=== PATIENT | female | born 1960 | race Caucasian/White ===

== ENCOUNTER 2020-08-02 19:19 | Emergency (ER) | payer MEDICAID, OTHER ==
[~2020-08-02] VITALS: Ht 167.6 cm; Wt 99.8 kg
--- NOTE | 2020-08-02 19:31 | NUR ---
PT AAOX4. AMBULATORY WITH STEDY GAIT. BIB HER SON FOR C/O HEADAHCE AND BLE PAIN SINCE LAST NIGHT. UPON ASSESSMENT NO SOB NOTED, -COUGH, NOR FEVER. PT RESTING COMFORTABLY IN BED 8. NO ACUTE DISTRESS NOTED. AWAITING MD FOR EVAL AND ORDERS.
--- NOTE | 2020-08-02 19:41 | NUR ---
PA AT BEDSIDE SPEAKING TO PT
[2020-08-02] MEDS ORDERED: KETOROLAC TROMETHAMINE 15 MG/ML VIAL ONE (20:05)
[2020-08-02] MEDS ORDERED: PROCHLORPERAZINE EDISYLATE 10 MG/2 ML VIAL ONE (20:05)
[2020-08-02] MEDS ORDERED: DEXAMETHASONE SOD PHOSPHATE 10 MG/ML VIAL ONE (20:05)
[2020-08-02] MEDS ORDERED: MORPHINE SULFATE INJ 4 MG/ML DISP.SYRIN ONE (20:06)
[2020-08-02] MEDS: IV NS 0.9% 1,000 ML BAG IV ONE (20:10)
[2020-08-02] MEDS: MORPHINE SULFATE INJ 10 MG/ML DISP.SYRIN IV ONE (20:15)
--- NOTE | 2020-08-02 20:15 | NUR ---
SENIOR ACCOUNTING SPECIALIST AT BEDSIDE FOR LABS
[2020-08-02] MEDS: KETOROLAC TROMETHAMINE INJ 30 MG/ML VIAL IV ONE (20:17)
[2020-08-02] MEDS: DEXAMETHASONE SOD PHOSPHATE 10 MG/ML VIAL IV ONE (20:18)
[2020-08-02] MEDS: PROCHLORPERAZINE EDISYLATE 10 MG/2 ML VIAL IVP ONE (20:19)
[2020-08-02 20:20] LABS: BASOPHILS % (AUTO) 0.5 % (0.0-2.0); EOSINOPHILS % (AUTO) 0.3 % (0.0-6.0); HEMATOCRIT 41 % (33-45); HEMOGLOBIN 13.7 g/dL (11.5-14.8); LYMPHOCYTES # (AUTO) 1.5 /CMM (0.8-4.8); LYMPHOCYTES % (AUTO) 33.2 % (20.0-44.0); MEAN CORPUSCULAR HGB CONC 33 g/dl (31.0-36.0); MEAN CORPUSCULAR VOLUME 85 fL (82-100); MONOCYTES # (AUTO) 0.7 /CMM (0.1-1.30); MONOCYTES % (AUTO) 15.5 % (2.0-12.0); NEUTROPHILS # (AUTO) 2.3 /CMM (1.8-8.9); NEUTROPHILS % (AUTO) 50.5 % (43.0-81.0); PLATELET COUNT (AUTO) 245 /CMM (150-450); RED BLOOD CELL COUNT(AUTO) 4.86 MIL/uL (4.0-5.2); WHITE BLOOD COUNT (AUTO) 4.5 K/uL (4.3-11.0)
[2020-08-02 20:29] LABS: CALCIUM, SERUM 9.1 mg/dL (8.5-10.1); CREATININE 0.8 mg/dL (0.6-1.3)
--- NOTE | 2020-08-02 20:29 | NUR ---
PT MEDICATED, STATED SHE FEELS BETTER.
--- NOTE | 2020-08-02 21:17 | NUR ---
PT DENIES PAIN, AMBULATED TO THE RESTROOM
--- NOTE | 2020-08-02 21:51 | NUR ---
IV removed. Catheter intact and site benign. Pressure and 4x4 applied to site. No bleeding noted. Patient discharged to home in stable condition. Written and verbal after care instructions given. Patient verbalizes understanding of instruction and RX.
[2020-08-02 21:57] VITALS: BP 134/71
== END 2020-08-02 22:08 | disposition home or self-care (01) ==
LOC: ER 19:25
DX: R51 Headache (principal); G57.83 Other specified mononeuropathies of bilateral lower limbs; M54.31 Sciatica, right side; E11.9 Type 2 diabetes mellitus without complications; Z90.49 Acquired absence of other specified parts of digestive tract
CPT/HCPCS: 36415; 80048; 85025; 96361; 96374; 96375; 99284; J0780; J1100; J1885; J2270; J7030

== ENCOUNTER 2020-08-07 16:38 | Emergency (ER) | payer OTHER ==
[~2020-08-07] VITALS: Ht 167.6 cm; Wt 96.2 kg
[2020-08-07] MEDS ORDERED: MORPHINE SULFATE INJ 2 MG/ML DISP.SYRIN IV ONE (17:00)
[2020-08-07] MEDS ORDERED: IV NS 0.9% 1,000 ML BAG IV ONE (17:00)
[2020-08-07] MEDS ORDERED: ONDANSETRON HCL/PF 4 MG/2 ML VIAL IVP ONE (17:00)
[2020-08-07] MEDS ORDERED: MORPHINE SULFATE INJ 4 MG/ML DISP.SYRIN ONE (17:06)
[2020-08-07] MEDS ORDERED: ONDANSETRON HCL/PF 4 MG/2 ML VIAL ONE (17:06)
[2020-08-07 17:20] LABS: BASOPHILS % (AUTO) 0.4 % (0.0-2.0); EOSINOPHILS % (AUTO) 0.2 % (0.0-6.0); HEMATOCRIT 44 % (33-45); HEMOGLOBIN 14.4 g/dL (11.5-14.8); LYMPHOCYTES # (AUTO) 2.1 /CMM (0.8-4.8); LYMPHOCYTES % (AUTO) 48.5 % (20.0-44.0); MEAN CORPUSCULAR HGB CONC 33 g/dl (31.0-36.0); MEAN CORPUSCULAR VOLUME 85 fL (82-100); MONOCYTES # (AUTO) 0.4 /CMM (0.1-1.30); MONOCYTES % (AUTO) 8.1 % (2.0-12.0); NEUTROPHILS # (AUTO) 1.9 /CMM (1.8-8.9); NEUTROPHILS % (AUTO) 42.8 % (43.0-81.0); PLATELET COUNT (AUTO) 229 /CMM (150-450); WHITE BLOOD COUNT (AUTO) 4.3 K/uL (4.3-11.0)
--- NOTE | 2020-08-07 17:24 | NUR ---
body ache worst for the past 2 days. PT AAOX4, VSS. RR EVEN & UNLABORED. DENIES CP, SOB, DIZZINESS, N/V/D AT THIS TIME. PT SEEN & EVAL'D BY FREIDA WAHL. PLACED ON SHOT LIGHTER, SR. WILL CONT TO MONITOR.
[2020-08-07 17:26] LABS: CREATININE 0.8 mg/dL (0.6-1.3); POTASSIUM 4.1 mmol/L (3.5-5.1)
[2020-08-07 17:32] LABS: ALBUMIN 3.5 g/dL (3.4-5.0); BILIRUBIN,DIRECT 0.1 mg/dL (0.0-0.2); BILIRUBIN,TOTAL 0.3 mg/dL (0.2-1.0); TOTAL PROTEIN, SERUM 8.1 g/dL (6.4-8.2)
--- NOTE | 2020-08-07 19:24 | NUR ---
Patient discharged to home in stable condition. Written and verbal after care instructions given. Patient verbalizes understanding of instruction. IV removed. Catheter intact and site benign. Pressure and 4x4 applied to site. No bleeding noted.
[2020-08-07 19:25] VITALS: BP 126/53
== END 2020-08-07 19:25 | disposition home or self-care (01) ==
LOC: ER 16:42
DX: R10.11 Right upper quadrant pain (principal); E11.9 Type 2 diabetes mellitus without complications; Z90.89 Acquired absence of other organs
CPT/HCPCS: 36415; 76705; 80048; 80076; 83690; 85025; 96361; 96374; 96375; 99284; J2270; J2405; J7030

== ENCOUNTER 2020-08-09 18:03 | Emergency (ER) | payer OTHER ==
[~2020-08-09] VITALS: Ht 167.6 cm; Wt 98.0 kg
--- NOTE | 2020-08-09 18:35 | NUR ---
BIB SON, FOR SOB AND FEVER THAT STARTED LAST NIGHT. PATIENT A/OX4, HAITIAN SPEAKING, NO DISTRESS NOTED, ATTACHED TO THE TECHNICIAN AUTOMATIC. SPO2 96% ON ROOM AIR.
[2020-08-09 18:52] LABS: BASOPHILS % (AUTO) 0.2 % (0.0-2.0); EOSINOPHILS % (AUTO) 0.6 % (0.0-6.0); HEMATOCRIT 40 % (33-45); HEMOGLOBIN 13.2 g/dL (11.5-14.8); LYMPHOCYTES # (AUTO) 1.9 /CMM (0.8-4.8); LYMPHOCYTES % (AUTO) 41.9 % (20.0-44.0); MEAN CORPUSCULAR HGB CONC 33 g/dl (31.0-36.0); MEAN CORPUSCULAR VOLUME 84 fL (82-100); MONOCYTES # (AUTO) 0.4 /CMM (0.1-1.30); MONOCYTES % (AUTO) 9.6 % (2.0-12.0); NEUTROPHILS # (AUTO) 2.1 /CMM (1.8-8.9); NEUTROPHILS % (AUTO) 47.7 % (43.0-81.0); PLATELET COUNT (AUTO) 230 /CMM (150-450); RED BLOOD CELL COUNT(AUTO) 4.77 MIL/uL (4.0-5.2); WHITE BLOOD COUNT (AUTO) 4.5 K/uL (4.3-11.0)
--- NOTE | 2020-08-09 18:57 | NUR ---
Iv line established, blood drawn and sent to lab. Urine sample sent to lab.
[2020-08-09 19:05] LABS: CALCIUM, SERUM 8.7 mg/dL (8.5-10.1); CREATININE 0.8 mg/dL (0.6-1.3); POTASSIUM 4.1 mmol/L (3.5-5.1)
[2020-08-09 19:08] LABS: APPEARANCE,URINE Clear (CLEAR); BILIRUBIN,URINE Negative (NEGATIVE); BLOOD, URINE Negative Ery/uL (NEGATIVE); COLOR,URINE Yellow (YELLOW); KETONES,URINE Negative (NEGATIVE); LEUKOCYTE ESTERASE ,URINE Negative (NEGATIVE); NITRITE, URINE Negative (NEGATIVE); PROTEIN,URINE Negative (NEGATIVE); UGLUCOSE Negative (NEGATIVE); UROBILINOGEN,URINE 0.2 EU/dL (0.2)
[2020-08-09 19:20] LABS: ALBUMIN 3.5 g/dL (3.4-5.0); BILIRUBIN,DIRECT 0.1 mg/dL (0.0-0.2); BILIRUBIN,TOTAL 0.5 mg/dL (0.2-1.0); TOTAL PROTEIN, SERUM 8.1 g/dL (6.4-8.2)
[2020-08-09 19:21] LABS: B-TYPE NATRIURETIC PEPTIDE 101 PG/ML (0-125)
[2020-08-09] MEDS ORDERED: ACETAMINOPHEN 325 MG TABLET ONE (19:25)
[2020-08-09] MEDS ORDERED: ACETAMINOPHEN 325 MG TABLET PO ONE (19:30)
--- NOTE | 2020-08-09 19:46 | NUR ---
CALLED LAB REGARDING COVID SWAB, STATED THEY HAD IT.
--- NOTE | 2020-08-09 20:58 | NUR ---
CALLED LAB REGARDING COVID RESULTS, COVID POSITIVE.
[2020-08-09 21:42] VITALS: BP 155/65
== END 2020-08-09 21:43 | disposition home or self-care (01) ==
LOC: ER 18:10
DX: U07.1 COVID-19 (principal); J98.11 Atelectasis; R94.31 Abnormal electrocardiogram [ECG] [EKG]; I70.0 Atherosclerosis of aorta; Z90.49 Acquired absence of other specified parts of digestive tract; E11.9 Type 2 diabetes mellitus without complications; E78.5 Hyperlipidemia, unspecified
CPT/HCPCS: 36415; 71045; 80048; 80076; 81001; 83690; 83880; 84484; 85025; 85378; 87426; 93005; 99285; C9803; 81000-TC